=== PATIENT | male | born 1975 | race Caucasian/White ===

== ENCOUNTER 2018-01-08 09:36 | Emergency (ER) | payer OTHER ==
[2018-01-08] MEDS ORDERED: DIAZEPAM 5 MG TAB PO STA (10:53)
--- NOTE | 2018-01-08 10:57 | ED ---
Back Pain HPI - General Chief Complaint: Back Pain/Injury Stated Complaint: back pain Time Seen by Provider: 01/08/18 10:20 Source: patient Limitations: no limitations - History of Present Illness Initial Comments: Patient is a 42-year-old male who presents with a chief complaint of back pain. The patient states that this pain has been going on for about 4 months intermittently however after grooming's dog on Monday the pain became acutely worse. He acknowledges a sharp, stabbing, and burning pain. Aggravating factors are standing up straight, and lying flat. Alleviating factors are flexion of the left hip. The patient states that when he pulls his knee to his chest this pain nearly disappears. The patient cannot identify any other inciting incidences. The patient is otherwise healthy and does not take any medications on a regular basis. He has NO KNOWN DRUG ALLERGIES. - Related Data Home Medications Medication Instructions Recorded Confirmed Acetaminophen [Tylenol] 650 mg PO Q6H PRN 01/08/18 01/08/18 HYDROcodone/APAP 5-325MG [[place] 1 tab PO ONCE PRN 01/08/18 01/08/18 5-325] Ibuprofen [Advil] 200 - 400 mg PO Q6H PRN 01/08/18 01/08/18 Previous Rx's Medication Instructions Recorded Diazepam [Valium] 5 mg PO Q8HR PRN #5 tab 01/08/18 Allergies Allergy/AdvReac Type Severity Reaction Status Date / Time No Known Allergies Allergy Verified 01/08/18 10:49 Review of Systems ROS Statement: Those systems with pertinent positive or pertinent negative responses have been documented in the HPI. ROS Other: All systems not noted in ROS Statement are negative. Musculoskeletal: Reports: back pain Past Medical History Past Medical History: No Reported History History of Any Multi-Drug Resistant Organisms: None Reported Past Surgical History: No Surgical Hx Reported Past Psychological History: No Psychological Hx Reported Smoking Status: Never smoker Past Alcohol Use History: None Reported Past Drug Use History: None Reported General Exam Limitations: no limitations General appearance: alert, in no apparent distress Head exam: Present: atraumatic, normocephalic Eye exam: Present: normal appearance ENT exam: Present: normal exam Neck exam: Present: normal inspection Respiratory exam: Present: normal lung sounds bilaterally. Absent: respiratory distress, wheezes Cardiovascular Exam: Present: regular rate, normal rhythm GI/Abdominal exam: Present: soft. Absent: distended, tenderness Rectal exam: Present: deferred Extremities exam: Present: normal inspection Back exam: Present: normal inspection, other (patient does not have any exacerbation of pain with palpation of the back. pain is not reproducible. pain exacerbated with extension of the hip. ). Absent: CVA tenderness (R), CVA tenderness (L) Neurological exam: Present: alert, oriented X3, CN II-XII intact, other (motor, strength, and sensation are within normal limits in b/l lower extremities. pulses are 2+ DP bilaterally. patient denies any bowel or bladder dysfunction, he denies any saddle anesthesia. ). Absent: motor sensory deficit Psychiatric exam: Present: normal affect, normal mood Skin exam: Present: warm, dry, intact Course Vital Signs 01/08/18 10:12 Temperature 97.8 F Pulse Rate 61 Respiratory 16 Rate Blood Pressure 113/75 O2 Sat by Pulse 98 Oximetry Medical Decision Making - Medical Decision Making Patient presents with a chief complaint of left-sided lower back pain. On initial evaluation, vitals are stable, patient is in no acute distress. History and physical examination are most consistent with a psoas muscle strain. Pain is not reproducible with palpation. Patient denies any neurologic defects including bowel or bladder dysfunction, saddle anesthesia, or decreased strength. There is no evidence of cord compression at this time. Patient will be given a dose of by mouth Valium and will have myofascial release performed to the psoas muscle. 12:36 PM Patient was feeling more relaxed after a dose of Valium. Myofascial release was performed to the left psoas muscle. Patient had resolution of his muscle spasm and roman catholic of range of motion. Patient now able to stand and walk without difficulty. Patient was instructed on stretching at home. he was written a prescriptions for 5 valium tablets and instructed on their use. patient has norco listed on his medications list, however he states he only took 1 yesterday and it was his 's. patient instructed to follow up with pcp in 1-2 days, return to the ED if sx worsen or change. Disposition Clinical Impression: Psoas muscle strain Disposition: HOME SELF-CARE Condition: Good Instructions: Tendinitis (ED) Prescriptions: Diazepam [Valium] 5 mg PO Q8HR PRN #5 tab PRN Reason: Muscle Spasm Is patient prescribed a controlled substance at d/c from ED?: Yes If prescribed controlled substance>3 days was MAPS reviewed?: Prescribed <3 Days Referrals: Sunitha Chavez MD [Primary Care Provider] - 1-2 days
[2018-01-08 12:58] VITALS: BP 132/80; PULSE 63; RESP 18; TEMP 97.7
== END 2018-01-08 12:58 | disposition home or self-care (01) ==
LOC: EC 09:36
DX: S39.012A Strain of muscle, fascia and tendon of lower back, initial encounter (principal)
CPT/HCPCS: 99283

== ENCOUNTER → 2018-01-09 | Outpatient (CLI) | payer OTHER ==
--- NOTE | 2018-01-09 14:54 | XR ---
Lumbar spine HISTORY: Low back pain 3 views of the lumbar spine Lumbar vertebral bodies show preserved height, alignment, and bone mineralization. Disc spaces are ma intained exception of some disc height loss at L4-5 and L5-S1 with associated spondylosis at superior endplate L5. IMPRESSION: Degenerative disc disease, consider lumbar MRI.
== END | disposition home or self-care (01) ==
LOC: RADXRMAIN 13:07
PROVIDERS: ATTEND Family Medicine
DX: M51.16 Intervertebral disc disorders with radiculopathy, lumbar region (principal)
CPT/HCPCS: 72100